=== PATIENT | female | born 1960 | race Caucasian/White ===

== ENCOUNTER → 2019-11-15 11:06 | Outpatient (CLI) | payer OTHER, SELFPAY ==
--- NOTE | 2019-11-15 | DI.MRI.S_ITS ---
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 After the administration of contrast, axial/coronal/sagittal T1 fast spin echo with fat saturation through the neck. COMPARISON: None. FINDINGS: Image quality: Diagnostic, with note made of motion artifact. Lymph nodes: No enlarged nodes are seen throughout the neck. Vessels: Visualized vasculature appears normal, with normal flow voids and enhancement. Neck spaces: A marker is placed at the area of clinical concern, where the patient gives a history of prior lipoma removal. At this site, no definite recurrent lipoma was can be seen. No masses or abnormal enhancement can be seen at this site. The oropharynx, nasopharynx and pharynx are unremarkable, without mucosal lesions seen. Vocal cords, false vocal cords, pyriform sinuses, epiglottis, vallecula, and tongue base all appear normal. Extramucosal spaces of the neck also appear unremarkable. Glands: The parotid and submandibular glands appear normal. Thyroid gland demonstrates no significant MR abnormality. Miscellaneous: Visualized brain and orbits appear normal. Lung apices appear clear. Superficial soft tissues appear normal. Visualized sinuses and mastoids appear clear. Bones: Marrow has normal overall signal. Age-appropriate bony degenerative changes are seen. IMPRESSION: No significant abnormality can be seen at the area of clinical concern. No masses or abnormal enhancement seen elsewhere. Dictated by: Enrique Nichols M.D. on 11/15/2019 at 13:18 Approved by: Enrique Nichols M.D. on 11/15/2019 at 13:21
== END ==
PROVIDERS: PCP Nurse Practitioner Family; Referring Provider Otolaryngology; Visit Provider Otolaryngology
DX: D17.0 Benign lipomatous neoplasm of skin and subcutaneous tissue of head, face and neck (principal)
CPT/HCPCS: 70543; A9579

== ENCOUNTER → 2020-02-21 11:47 | Outpatient (CLI) | payer OTHER, SELFPAY ==
--- NOTE | 2020-02-21 | DI.CT.S_ITS ---
PROCEDURE: CT ABDOMEN PELVIS W CON INDICATIONS: Generalized abdominal pain TECHNIQUE: After the administration of oral and intravenous contrast, 5 mm thick sections acquired from the diaphragms to the symphysis. 5 mm thick coronal and sagittal reformats were performed. For radiation dose reduction, the following was used: automated exposure control, adjustment of mA and/or kV according to patient size. COMPARISON: None. FINDINGS: Image quality: Excellent. ABDOMEN: Lung bases: Lung bases are clear. Heart size is normal. Solid organs: Liver is normal in size and enhancement, but is prominently diffusely fatty infiltrated. Gallbladder has been previously resected . Biliary system is non-dilated. Pancreas enhances normally. Spleen is normal in size and enhancement. No adrenal nodules. Kidneys are normal in size and enhancement, without hydronephrosis. Peritoneum and bowel: Stomach, small bowel, and colon loops are normal in caliber and wall thickness. No free fluid or air. Nodes and vessels: No retroperitoneal or mesenteric adenopathy. Aorta and inferior vena cava are normal in caliber. Miscellaneous: No ventral hernias. PELVIS: Genitourinary: Bladder wall thickness is normal. Miscellaneous: No inguinal hernias or adenopathy. Bones: No suspicious bony lesions. No vertebral body compression fractures. IMPRESSION: Prominent fatty infiltration within the liver. No mass lesion or evidence of inflammatory change is seen. A source of new abdominal pain is not identified. Please correlate clinically for whether hepatic steatosis explains current symptomatology. Dictated by: Waldo Franco M.D. on 02/21/2020 at 16:29 Approved by: Waldo Franco M.D. on 02/21/2020 at 16:32
== END ==
PROVIDERS: PCP Nurse Practitioner Family; Referring Provider Nurse Practitioner Family; Visit Provider Nurse Practitioner Family
DX: R10.84 Generalized abdominal pain (principal); K76.0 Fatty (change of) liver, not elsewhere classified
CPT/HCPCS: 74177; Q9967